=== PATIENT | female | born 1970 | race Caucasian/White ===

== ENCOUNTER 2021-09-21 21:46 | Emergency (ER) | payer SELFPAY ==
[~2021-09-21] VITALS: Ht 152.4 cm; Wt 82.2 kg
[2021-09-21 21:57] VITALS: BP 128/74
--- NOTE | 2021-09-21 22:05 | NUR ---
PT AMBULATED TO BED #6
--- NOTE | 2021-09-21 22:38 | NUR ---
DR. PAN AT BEDSIDE FOR EVALUATION
--- NOTE | 2021-09-21 22:53 | NUR ---
ER AT BEDSIDE
[2021-09-21] MEDS: KETOROLAC 60 MG/2 ML VIAL IM ONE (23:12)
[2021-09-21] MEDS: diphenhydrAMINE 50 MG/ML VIAL IM ONE (23:13)
[2021-09-21] MEDS: PROCHLORPERAZINE 10 MG/2 ML VIAL IM ONE (23:17)
--- NOTE | 2021-09-21 23:18 | NUR ---
NEG URINE PREG
[2021-09-21 23:22] VITALS: BP 128/74
--- NOTE | 2021-09-21 23:22 | NUR ---
Patient discharged with v/s stable. Written and verbal after care instructions given and explained. Patient verbalized understanding. Ambulatory with steady gait. All questions addressed prior to discharge. Advised to follow up with PMD.
--- NOTE | 2021-09-21 23:25 | NUR ---
The patient's care was reviewed and supervised by Sugey Boo RN.
== END 2021-09-21 23:22 | disposition home or self-care (01) ==
LOC: MED 21:46
DX: G43.909 Migraine, unspecified, not intractable, without status migrainosus (principal)
CPT/HCPCS: 81025; 96372; 99284; J0780; J1200; J1885